=== PATIENT | female | born 1950 ===

== ENCOUNTER 2017-01-04 14:34 | Emergency (ER) | payer OTHER ==
[2017-01-04 14:52] VITALS: PULSE 62; RESP 18; TEMP 97.6; O2SAT 99
--- NOTE | 2017-01-04 15:55 | ED PDOC ---
Lower Extremity Pain/Injury Time Seen by Provider: 01/04/17 15:02 Chief Complaint (Nursing): Lower Extremity Problem/Injury Chief Complaint (Provider): leg pain History Per: Patient, [employer] Employee ([employer] #[id number]) History/Exam Limitations: no limitations Onset/Duration Of Symptoms: Days (3) Current Symptoms Are (Timing): Still Present Severity: Moderate Additional Complaint(s): 66yo female c/o L>R leg and calf pains ongoing for several days. Denies chest pain, SOB, injury, trauma or overuse of legs. Sent by PMD Dr Hernandez to ED for US duplex r/o DVT. Past Medical History Reviewed: Historical Data, Nursing Documentation, Vital Signs Vital Signs: Last Vital Signs Temp 97.6 F 01/04/17 14:50 Pulse 62 01/04/17 14:50 Resp 18 01/04/17 14:50 BP 210/63 H 01/04/17 14:50 Pulse Ox 99 01/04/17 14:50 - Medical History PMH: HTN - Family History Family History: States: Unknown Family Hx - Living Arrangements Living Arrangements: With Family - Social History Current smoker - smoking cessation education provided: No Alcohol: None - Allergies Allergies/Adverse Reactions: Allergies Allergy/AdvReac Type Severity Reaction Status Date / Time No Known Allergies Allergy Verified 01/04/17 14:49 Review of Systems ROS Statement: Except As Marked, All Systems Reviewed And Found Negative Constitutional: Negative for: Fever, Chills Cardiovascular: Negative for: Chest Pain, Palpitations Respiratory: Negative for: Cough, Shortness of Breath Gastrointestinal: Negative for: Nausea, Vomiting Genitourinary Female: Negative for: Dysuria, Frequency Musculoskeletal: Negative for: Neck Pain, Shoulder Pain Skin: Negative for: Rash, Lesions, Jaundice Neurological: Negative for: Weakness, Numbness Psych: Negative for: Anxiety Physical Exam - Reviewed Nursing Documentation Reviewed: Yes Vital Signs Reviewed: Yes - Physical Exam Appears: Positive for: Well, Non-toxic, No Acute Distress Head Exam: Positive for: ATRAUMATIC, NORMAL INSPECTION, NORMOCEPHALIC Skin: Positive for: Normal Color, Warm, DRY Eye Exam: Positive for: EOMI, Normal appearance, PERRL ENT: Positive for: Normal ENT Inspection Neck: Positive for: Normal, Painless ROM Cardiovascular/Chest: Positive for: Regular Rate, Rhythm Respiratory: Positive for: CNT, Normal Breath Sounds Gastrointestinal/Abdominal: Positive for: Soft Back: Negative for: Muscle Spasm Extremity: Positive for: Normal ROM, Swelling (trace b/l LE edema), Other (+R calf tenderness, minimal left tenderness achilles tendon, neg L calf tenderness) . Negative for: Deformity Neurologic/Psych: Positive for: Alert, Oriented - ECG O2 Sat by Pulse Oximetry: 99 Medical Decision Making Medical Decision Making: to check labs, US duplex LE r/o DVT and initiate toradol for pain Disposition - Disposition
--- NOTE | 2017-01-04 16:39 | US ---
PROCEDURE: Bilateral lower extremity venous duplex Doppler. HISTORY: leg pain/swelling bilat COMPARISON: None available. TECHNIQUE: Bilateral common femoral, superficial femoral, popliteal and posterior tibial veins were evaluated. Flow was assessed with color Doppler, compressibility, assessment of phasic flow and augmentation response. FINDINGS: COMMON FEMORAL VEIN: Right CFV: Unremarkable. Left CFV: Unremarkable. SUPERFICIAL FEMORAL VEIN: Right SFV: Unremarkable. Left SFV: Unremarkable. POPLITEAL VEIN: Right Popliteal: Unremarkable. Left Popliteal: Unremarkable. POSTERIOR TIBIAL VEIN: Right PTV: Unremarkable. Left PTV: Unremarkable. OTHER FINDINGS: Bilateral mildly enlarged inguinal lymph nodes. IMPRESSION: No evidence of deep venous thrombosis. Bilateral mildly enlarged inguinal lymph nodes.
[2017-01-04 17:25] LABS: BASO # 0.1 K/uL (0.0-0.2); BASO % 0.7 % (0.0-2.0); EOS # 0.2 K/uL (0.0-0.7); EOS % 1.4 % (0.0-4.0); HEMATOCRIT 40.6 % (34.0-47.0); LYMPH % 24.6 % (20.0-40.0); MEAN CELL VOLUME 78.3 fl (81.0-99.0); MEAN CORPUSCULAR HGB CONC 33.2 g/dL (33.0-37.0); MONO # 0.5 K/uL (0.0-0.8); MONO % 4.2 % (0.0-10.0); NEUT # 8.3 K/uL (1.8-7.0); NEUT % 69.1 % (50.0-75.0); NRBC % 0.1 % (0.0-0.0); RED CELL DISTRIBUTION WIDTH 17.3 % (11.5-14.5)
[2017-01-04 17:38] VITALS: BP 149/67
[2017-01-04 17:43] LABS: PARTIAL THROMBOPLASTIN TIME 16.6 Seconds (25.6-37.1)
[2017-01-04 18:06] LABS: BLOOD UREA NITROGEN 10 mg/dl (7-17); CALCIUM 9.2 mg/dL (8.4-10.2); CARBON DIOXIDE 25 mmol/L (22-30); CHLORIDE 105 mmol/L (98-107); GFR AFRICAN-AMERICAN > 60; GLUCOSE,RANDOM 90 mg/dL (65-105); POTASSIUM 3.6 MMOL/L (3.6-5.0); SODIUM 141 mmol/l (132-148)
[2017-01-04 18:17] LABS: MEAN PLATELET VOLUME 9.4 fl (7.2-11.7)
== END 2017-01-04 17:24 | disposition home or self-care (01) ==
LOC: H.ER 14:34
DX: M79.606 Pain in leg, unspecified (principal)
CPT/HCPCS: 80048; 82550; 85025; 85610; 85730; 93970; 96372; 99282; J1885